=== PATIENT | male | born 1950 | race African-American/Black ===

== ENCOUNTER 2021-04-16 14:45 | Inpatient (IN) | payer MEDICARE, MEDICAID ==
[~2021-04-16] VITALS: Ht 185.4 cm; Wt 80.9 kg
[2021-04-16] MEDS ORDERED: LEVETIRACETAM 500MG PREMIX 100 ML IV ONE (15:15)
[2021-04-16] MEDS ORDERED: SODIUM CHLORIDE 0.9% 1,000 ML IV ONE (15:15)
[2021-04-16 15:40] LABS: BASOPHILS % 0.5 % (0.0-2.0); EOSINOPHILS % 0.3 % (0.0-5.0); HEMATOCRIT. 40.2 % (42.0-52.0); HEMOGLOBIN. 13.2 g/dL (14.0-18.0); LYMPHOCYTES % 28.3 % (20.0-50.0); MEAN CORPUSCULAR HEMOGLOBIN 29.8 pg (28.0-32.0); MEAN CORPUSCULAR VOLUME 90.6 fL (80.0-94.0); MEAN PLATELET VOLUME 7.8 fl (7.4-10.4); MONOCYTES % 8.4 % (2.0-8.0); NEUTROPHILS % 62.5 % (40.0-76.0); PLATELET 205 x1000/uL (130-400); RED BLOOD CELL COUNT 4.44 mill/uL (4.7-6.1); RED CELL DISTRIBUTION WIDTH 14.9 % (11.6-14.6)
[2021-04-16 15:54] LABS: CHLORIDE 108 mEq/L (98-107)
[2021-04-16] MEDS ORDERED: ASPIRIN 325MG EC TABLET PO ONE (18:30)
[2021-04-17 08:30] VITALS: BP 113/68
[2021-04-17] MEDS ORDERED: ASPI-1406 PO (10:37)
[2021-04-17] MEDS ORDERED: AMLO5TAB88 PO (10:37)
[2021-04-17] MEDS ORDERED: EPIN0.3P3 IM (10:42)
[2021-04-17] MEDS ORDERED: LOSA25TA26 PO (10:42)
[2021-04-17] MEDS ORDERED: LIP40 PO (10:42)
[2021-04-17] MEDS ORDERED: TOPUD MT (10:42)
[2021-04-17] MEDS ORDERED: ACET-2708 MT (10:42)
[2021-04-17] MEDS ORDERED: METF500T60 PO (10:42)
[2021-04-17] MEDS ORDERED: DOCU-138 PO (10:42)
[2021-04-17] MEDS ORDERED: GABA-290 PO (10:42)
[2021-04-17] MEDS ORDERED: ACETAMINOPHEN 325MG TABLET PO PRN (11:00)
[2021-04-17] MEDS ORDERED: ONDANSETRON HCL 4MG/2ML INJ IV PRN (11:00)
[2021-04-17] MEDS: ENOXAPARIN 40MG/0.4ML SYR SUBCUT SCH (11:44)
[2021-04-17 12:00] VITALS: BP 143/71
[2021-04-17 16:00] VITALS: BP_SYST 133; BP_SYST 156; BP_SYST 160; BP_DIAS 58; BP_DIAS 75; BP_DIAS 77
[2021-04-17] MEDS: AMLODIPINE 10MG TABLET PO SCH (17:41)
[2021-04-17 20:00] VITALS: BP 155/69
[2021-04-17] MEDS: LEVETIRACETAM 500MG TABLET PO SCH (21:10)
[2021-04-17] MEDS ORDERED: LORAZEPAM 2MG/ML CPJ IV PRN (22:15)
[2021-04-17 23:36] LABS: CLARITY URINE CLEAR (CLEAR); COLOR URINE YELLOW (YELLOW); KETONES URINE NEGATIVE (NEGATIVE); LEUKOCYTE ESTERASE URINE NEGATIVE (NEGATIVE); NITRITE URINE NEGATIVE (NEGATIVE); OCCULT BLOOD URINE NEGATIVE (NEGATIVE); PROTEIN URINE NEGATIVE (NEGATIVE); SPECIFIC GRAVITY URINE 1.004 (1.005-1.030); UROBILINOGEN URINE 0.2 E.U./dL (0.2-1.0)
[2021-04-18] VITALS: BP 135/57
[2021-04-18 04:00] VITALS: BP 140/56
[2021-04-18 08:00] VITALS: BP 150/68
[2021-04-18] MEDS: ASPIRIN 81MG TABLET PO SCH (08:19)
[2021-04-18] MEDS: AMLODIPINE 10MG TABLET PO SCH (08:20)
[2021-04-18] MEDS: LEVETIRACETAM 500MG TABLET PO SCH ×2 (08:20→21:18)
[2021-04-18] MEDS: ENOXAPARIN 40MG/0.4ML SYR SUBCUT SCH (10:14)
[2021-04-18 10:40] LABS: VITAMIN B12 SERUM 583 pg/mL (211-911)
[2021-04-18 12:00] VITALS: BP 152/74
[2021-04-18 16:00] VITALS: BP 138/71
[2021-04-18 20:00] VITALS: BP 115/93
[2021-04-19] VITALS: BP 162/77
[2021-04-19] MEDS ORDERED: CLONIDINE 0.1MG TABLET PO PRN (00:30)
[2021-04-19 04:00] VITALS: BP 128/66
[2021-04-19 08:00] VITALS: BP 134/67
[2021-04-19] MEDS: LEVETIRACETAM 500MG TABLET PO SCH (09:10)
[2021-04-19] MEDS: ASPIRIN 81MG TABLET PO SCH (09:10)
[2021-04-19] MEDS: AMLODIPINE 10MG TABLET PO SCH (09:10)
[2021-04-19 11:44] VITALS: BP 115/69
[2021-04-19 12:00] VITALS: BP 115/69
[2021-04-19] MEDS: ENOXAPARIN 40MG/0.4ML SYR SUBCUT SCH (12:16)
== END 2021-04-19 14:03 | DRG 48 ==
LOC: ER 15:00 → MICUSO 20:12 → EDBEDREQTM 20:16 → EDBEDREQ 20:16 → 7EST 04-17 09:53
PROVIDERS: ADMIT Internal Medicine; ATTEND Internal Medicine
PROC: 4A10X4Z Monitoring of Central Nervous Electrical Activity, External Approach (ICD-10-PCS; principal; 2021-04-18)
DX: G90.8 Other disorders of autonomic nervous system (principal); E44.1 Mild protein-calorie malnutrition; E87.8 Other disorders of electrolyte and fluid balance, not elsewhere classified; G93.89 Other specified disorders of brain; R56.9 Unspecified convulsions; E78.00 Pure hypercholesterolemia, unspecified; E78.5 Hyperlipidemia, unspecified; Z20.822 Contact with and (suspected) exposure to COVID-19; I10 Essential (primary) hypertension; E11.9 Type 2 diabetes mellitus without complications; I69.398 Other sequelae of cerebral infarction; Z68.23 Body mass index [BMI] 23.0-23.9, adult
CPT/HCPCS: 36415; 71045; 80053; 81003; 82607; 83036; 83880; 84443; 84484; 85025; 87426; 93005; 93306; 95816; 99285; J1650; J1953; J2060; J7030